=== PATIENT | male | born 1980 | race Caucasian/White ===

== ENCOUNTER 2021-09-11 07:57 | Emergency (ER) | payer OTHER, SELFPAY ==
[2021-09-11] VITALS (7 sets, daily range): BP systolic 108–135; BP diastolic 72–90; PULSE 57–80; RESP 13–17; TEMP 36.5; O2SAT 99–100
--- NOTE | ~2021-09-11 | XR_ITS ---
XR chest 2V DATE: 09/11/2021 08:30 INDICATION: Chest pain starting this morning. No cardiac history. TECHNIQUE: PA and lateral views COMPARISON: 11/25/2018 2 view chest FINDINGS: Normal heart size. Mild aortic unfolding. No hilar or mediastinal enlargement. No pulmonary infiltrate or consolidation, pleural effusion or pulmonary vascular congestion or pneumo thorax is detected. There is mild levoscoliosis of the thoracic spine. IMPRESSION: No active cardiopulmonary disease Reviewed, dictated and finalized at location B.
--- NOTE | 2021-09-11 08:04 | ECG_ITS ---
Measurements Intervals [place] Rate: 71 P: 46 [place]: 146 QRS: 59 QRSD: 99 T: 69 QT: 387 QTc: 421 Interpretive Statements SINUS RHYTHM BASELINE ARTIFACT- II, III, AVR, AVL, AVF NORMAL ECG Electronically Signed On 09-11-2021 8:47:54 CDT by Donny Zavala D.O.
[2021-09-11 08:19] LABS: Basophils Absolute Auto 0.1 K/mm3 (0.0-0.1); Basophils Percent Auto 1.2 % (0.2-1.2); Eosinophils Absolute Auto 0.4 K/mm3 (0-0.3); Eosinophils Percent Auto 4.8 % (0-4.4); Hematocrit 40.5 % (42.0-52.0); Hemoglobin 13.9 g/dL (14.0-18.0); Immature Granulocyte Absolute 0.04 K/mm3 (0.00-0.031); Immature Granulocyte Percent A 0.5 % (0-0.5); Lymphocytes Absolute Auto 2.05 K/mm3 (0.9-3.2); Lymphocytes Percent Auto 27.2 % (18.3-44.2); Mean Corpuscular HGB Conc 34.3 g/dl (32-36); Mean Corpuscular Hemoglobin 30.2 pg (26-34); Mean Corpuscular Volume 87.9 fl (80-100); Monocytes Absolute Auto 0.7 K/mm3 (0.1-0.6); Monocytes Percent Auto 8.9 % (2.6-8.5); Neutrophils Absolute Auto 4.3 K/mm3 (1.3-6.7); Neutrophils Percent Auto 57.4 % (45.5-73.1); Platelet Count Result 314 k/mm3 (150-375); Red Blood Count 4.61 M/mm3 (4.6-6.20); Red Cell Distribution Width 12.2 % (11.5-14.5); White Blood Count 7.5 K/mm3 (4.5-10.0)
[2021-09-11] MEDS: ASPIRIN 81 MG CHEWABLE TABLET 324 MG PO (08:20)
[2021-09-11] MEDS: ONDANSETRON INJ 4 MG/2 ML VIAL IV PUSH (08:21)
[2021-09-11] MEDS: MORPHINE SULFATE (*CRX) 4 MG/ML INJ IV PUSH (08:21)
[2021-09-11 08:31] LABS: Alanine Aminotransferase 22 U/L (6-50); Alkaline Phosphatase 78 U/L (38-126); Anion Gap 6 mmol/L (8-16); Aspartate Amino Transferase 23 U/L (17-59); Bilirubin,Total 0.3 mg/dL (0.2-1.3); Blood Urea Nitrogen 15 mg/dL (9-20); Calcium 8.1 mg/dL (8.4-10.2); Carbon Dioxide 28 mmol/L (22-30); Chloride 103 mmol/L (98-107); Estimated CRCL calculation 79 ml/min; Estimated Glomerular Filt Rate > 60; Glucose 112 mg/dL (65-110); Lipase 212 U/L (23-300); Potassium 3.5 mmol/L (3.4-5.0); Sodium 137 mmol/L (137-145)
--- NOTE | 2021-09-11 08:32 | ED.CHESTPAIN ---
HPI - Chest Pain General Chief Complaint: Chest Pain Stated Complaint: CP Time Seen by Provider: 09/11/21 08:03 Source: patient and EMS Mode of arrival: EMS Limitations: no limitations History of Present Illness HPI narrative: Pt awoke and was getting ready about 0700 and developed epigastric and midsternal chest pain without radiation. Pt says the pain was worse with a deep breath. Pt sasy the pain has improved without treatment over the last hour and is now a 3/10. Pt has history of wearing a 30 day monitor for heart palpitations years back but was not placed on meds afterward. Pt has no Hx of CAD or FH of CAD. Pt vapes. Pt denies recent travel or surgery and has no calf pain. MD complaint: chest pain Onset (ago): hour(s) (1) Timing of current episode: constant Prior episodes: No Pain location: substernal Pain radiation: none Severity: mild Quality: dull Relieving factors: nothing Exacerbating factors: inspiration Context: recent illness (none), recent travel (none) and history of DVT/PE (no) Treatment prior to arrival: none Risk Factors Coronary artery disease risk factors: none Thoracic aortic dissection risk factors: none Related Data Home Medications Medication Instructions Recorded Confirmed No Home Medications 09/11/21 09/11/21 Allergies Allergy/AdvReac Type Severity Reaction Status Date / Time Penicillins Allergy Unknown Unknown Verified 09/11/21 08:02 Review of Systems Review of Systems: All systems reviewed & are unremarkable except as noted in HPI and below Exam Const: General: cooperative, healthy appearing and no acute distress Nutritional Appearance: average body habitus Orientation/consciousness: patient oriented x3 Limitations: no limitations Neck: Neck: normal visual inspection, full ROM, no lymphadenopathy and no meningeal signs Chest: Chest palpation & inspection: normal inspection of the chest and normal palpation of entire chest wall Resp: Effort & Inspection: normal respiratory effort and able to speak in complete sentences Auscultation: clear to auscultation bilaterally Cardio: Jugular venous distension: no JVD Rate: regular rate Rhythm: regular rhythm Peripheral pulses: Peripheral pulses 2+ throughout GI: Inspection: normal to inspection GI Palp: Yes abdominal tenderness (none) Percussion: Yes normal to percussion Auscultation: normal bowel sounds Skin: General skin exam: normal color and no rashes or lesions noted Neuro: General: patient oriented x3, moves all extremities and CN's II-XI intact bilaterally Extrem: General: normal to inspection, full ROM and no clubbing, cyanosis or edema Course Vital Signs Vital signs: Vital Signs Temperature 97.7 F 09/11/21 07:55 Pulse Rate 80 09/11/21 07:55 Respiratory Rate 14 09/11/21 07:55 Blood Pressure 130/87 09/11/21 07:55 Pulse Oximetry 100 09/11/21 07:55 Temperature 97.7 F 09/11/21 07:55 Pulse Rate 65 09/11/21 12:44 Respiratory Rate 17 09/11/21 12:44 Blood Pressure 114/72 09/11/21 12:44 Pulse Oximetry 100 09/11/21 12:44 MDM - Chest Pain Lab Data Result diagrams: 09/11/21 08:09 09/11/21 08:09 Labs: Lab Results 09/11/21 09/11/21 09/11/21 Range/Units 08:09 08:09 08:09 WBC 7.5 (4.5-10.0) K/mm3 RBC 4.61 (4.6-6.20) M/mm3 Hgb 13.9 L (14.0-18.0) g/dL Hct 40.5 L (42.0-52.0) % MCV 87.9 (80-100) fl MCH 30.2 (26-34) pg MCHC 34.3 (32-36) g/dl RDW 12.2 (11.5-14.5) % Plt Count 314 (150-375) k/mm3 MPV 11.0 H (7.4-10.4) fl Immature Gran % (Auto) 0.5 (0-0.5) % Neut % (Auto) 57.4 (45.5-73.1) % Lymph % (Auto) 27.2 (18.3-44.2) % [place] % (Auto) 8.9 H (2.6-8.5) % Eos % (Auto) 4.8 H (0-4.4) % Baso % (Auto) 1.2 (0.2-1.2) % Lymph # (Auto) 2.05 (0.9-3.2) K/mm3 [place] # (Auto) 0.7 H (0.1-0.6) K/mm3 Eos # (Auto) 0.4 H (0-0.3) K/mm3 Baso # (Auto) 0.1 (0.0-0.1) K/mm3 Abs Im
[2021-09-11 08:43] LABS: Troponin I < 0.012 ng/mL (0.000-0.034)
[2021-09-11 08:48] LABS: INR 1.1; Prothrombin Time 13.5 Seconds (11.1-14.7)
[2021-09-11 08:49] LABS: Partial Thromboplastin Time 35.6 SECONDS (22.3-36.8)
[2021-09-11 08:51] LABS: D Dimer 0.33 ug/mL (<0.48)
[2021-09-11] MEDS: BELLADONNA ALK/PHENOB ELIX 10 ML, MAG HYDROX/ALUMINUM HYD/SIMETH 30 ML, LIDOCAINE HCL 2... PO (10:12)
[2021-09-11] MEDS: KETOROLAC 15 MG/ML VIAL (*BKC) IV PUSH (10:15)
[2021-09-11 12:11] LABS: Troponin I < 0.012 ng/mL (0.000-0.034)
== END 2021-09-11 12:46 | disposition home or self-care (01) ==
PROVIDERS: Emergency Provider Emergency Medicine
DX: K29.00 Acute gastritis without bleeding (principal); R07.89 Other chest pain
CPT/HCPCS: 36415; 71046; 80053; 83690; 84484; 85025; 85380; 85610; 85730; 93005; 96374; 96375; 99284; A9270; J1885; J2270; J2405